=== PATIENT | male | born 1970 | race Hispanic/Latino ===

== ENCOUNTER → 2020-10-17 | Outpatient (CLI) | payer BC | LOC: US 08:37 | PROVIDERS: ATTEND Otolaryngology | DX: E04.1 Nontoxic single thyroid nodule (principal) | CPT/HCPCS: 76536 ==

== ENCOUNTER → 2020-10-24 | Outpatient (CLI) | payer BC | LOC: US 09:57 | PROVIDERS: ATTEND Otolaryngology | DX: E04.2 Nontoxic multinodular goiter (principal) | CPT/HCPCS: 10005; 88172; 88173; 88305 ==

== ENCOUNTER 2021-01-16 09:05 | Observation (INO) | payer BC ==
[~2021-01-16] VITALS: Ht 170.2 cm; Wt 83.9 kg
[~2021-01-16 09:05] MED LIST: METFORMIN HCL500 MG PO
[2021-01-16] MEDS ORDERED: LIDOCAINE 1% W/EPINEPHRINE 20 ML VIAL ONE (10:52)
[2021-01-16] MEDS ORDERED: CLINDAMYCIN PHOS 900MG/ 50ML 50 ML IV ONE (11:09)
[2021-01-16] MEDS ORDERED: MIDAZOLAM HCL 2 MG/2 ML VIAL ONE (12:14)
[2021-01-16] MEDS ORDERED: FENTANYL CITRATE/PF 100MCG/2 ML INJ ONE (12:14)
[2021-01-16] MEDS ORDERED: KETAMINE HCL INJ 50 MG/ML 10 ML VIAL ONE (12:14)
[2021-01-16] MEDS ORDERED: ACETAMINOPHEN 1000 MG/100 ML 100 ML IV ONE (12:49)
[2021-01-16] MEDS ORDERED: ONDANSETRON HCL INJ 2MG/ML 2ML 2 MG/ML VIAL IV PRN (16:00)
[2021-01-16] MEDS ORDERED: HYDROCODONE/APAP 5MG-325MG TAB PO PRN (16:00)
[2021-01-16] MEDS ORDERED: HYDROCODONE/APAP 10MG-325MG TAB PO PRN (16:00)
[2021-01-16] MEDS ORDERED: ONDANSETRON HCL INJ 2MG/ML 2ML 2 MG/ML VIAL ONE ×2 (16:08→18:03)
[2021-01-16] MEDS ORDERED: METOCLOPRAMIDE HCL 10 MG/2ML VIAL ONE (16:08)
[2021-01-16 16:43] VITALS: BP 135/79
[2021-01-16 17:10] VITALS: BP 135/79
[2021-01-16] MEDS: SOD CHL 0.45%/POT CHL 20MEQ 1,000 ML IV SCH (17:28)
[2021-01-16] MEDS ORDERED: GLYCOPYRROLATE INJ 0.2 MG/ML VIAL ONE (18:03)
[2021-01-16] MEDS ORDERED: PROPOFOL IV EMULSION 10 MG/ML 20 ML VIAL ONE (18:03)
[2021-01-16] MEDS ORDERED: SEVOFLURANE INHAL SOLN 250 ML PEN BTL ONE (18:03)
[2021-01-16] MEDS ORDERED: ROCURONIUM BROMIDE 10 MG/ML 5ML VIAL IV ONE (18:03)
[2021-01-16] MEDS ORDERED: ESMOLOL HCL 100MG/10ML 10 MG/ML VIAL ONE (18:03)
[2021-01-16] MEDS ORDERED: NEOSTIGMINE 1 MG/ML 10ML VIAL ONE (18:03)
[2021-01-16] MEDS ORDERED: LIDOCAINE HCL 2% LOCAL INJ 5 ML SDV VIAL INJ ONE (18:03)
[2021-01-16] MEDS ORDERED: LIDOCAINE HCL 2% JELLY 5 ML TUBE ONE (18:03)
[2021-01-16] MEDS ORDERED: PHENYLEPHRINE HCL 1% 10 MG/ML VIAL ONE (18:03)
[2021-01-16] MEDS ORDERED: DEXAMETHASONE SOD PHOS INJ 4 MG/ML VIAL ONE (18:03)
[2021-01-16 20:00] VITALS: BP 136/70
[2021-01-16] MEDS: CLINDAMYCIN PHOS 900MG/ 50ML 50 ML IV SCH (20:00)
[2021-01-16] MEDS: CALCIUM CARBONATE 500 MG CHEWABLE TABS PO SCH (20:01)
[2021-01-16 22:10] LABS: ALBUMIN 3.7 g/dL (3.5-5.0); CALCIUM 8.3 mg/dL (8.4-10.2)
[2021-01-17] VITALS: BP 123/61
[2021-01-17] MEDS: SOD CHL 0.45%/POT CHL 20MEQ 1,000 ML IV SCH ×2 (01:20→09:13)
[2021-01-17 04:00] VITALS: BP 104/71
[2021-01-17] MEDS: CLINDAMYCIN PHOS 900MG/ 50ML 50 ML IV SCH (04:00)
[2021-01-17 07:46] VITALS: BP 116/78
[2021-01-17 07:47] VITALS: BP 116/78
[2021-01-17] MEDS: CALCIUM CARBONATE 500 MG CHEWABLE TABS PO SCH (09:01)
[2021-01-17 12:11] VITALS: BP 131/82
[2021-01-17] MEDS ORDERED: ONDANSETRON HCL 4 MG ORAL DISINTEGRATING TAB PO PRN (14:00)
== END 2021-01-17 14:00 | disposition home or self-care (01) ==
LOC: OR 09:05 → PACU V 14:50 → MED/SURG3 16:43
PROVIDERS: ADMIT Otolaryngology; ATTEND Otolaryngology
DX: C73 Malignant neoplasm of thyroid gland (principal); Z20.822 Contact with and (suspected) exposure to COVID-19; G47.33 Obstructive sleep apnea (adult) (pediatric); E11.9 Type 2 diabetes mellitus without complications; Z01.818 Encounter for other preprocedural examination
CPT/HCPCS: 36415 ×2; 60240; 82040 ×2; 82310 ×2; 82948 ×2; 88305; 88309; 88331; 96361; G0378 ×2; J0131; J1100; J2001 ×2; J2250; J2370; J2405; J2704; J2710; J2765; J3010; U0002; 88172; 88173